=== PATIENT | male | born 1980 ===

== ENCOUNTER 2020-05-22 11:30 | Emergency (ER) | payer BC ==
[~2020-05-22] VITALS: Ht 182.9 cm; Wt 127.0 kg
[2020-05-22] MEDS ORDERED: OSEL75CA PO (17:24)
== END 2020-05-22 17:50 | disposition home or self-care (01) ==
LOC: ER 11:30
DX: J10.1 Influenza due to other identified influenza virus with other respiratory manifestations (principal); B33.8 Other specified viral diseases; Z03.818 Encounter for observation for suspected exposure to other biological agents ruled out